=== PATIENT | female | born 1935 | race Caucasian/White ===

== ENCOUNTER → 2018-01-22 | Day surgery (SDC) | payer MEDICARE ==
[~2018-01-22] MED LIST: ASPI81TA50 PO; CHLO25TA PO; DEXL60CA2 PO; DILT120C80 PO; IV RINGERS SOLUTION,LACTATED 1,000 ML IV SCH; LIDOCAINE 1% PF 2 ML VIAL. ID PRN; LISI10TA2 PO; METO25TA4 PO; POTA10TA5 PO; PROPOFOL 10,000 MCG/ML (20ML) VIAL IV ONE; PROPOFOL 20 ML IV ONE; SIMV20TA3 PO
[2018-01-22 14:44] VITALS: BP 142/77
== END | disposition home or self-care (01) ==
LOC: SURG 12:32
PROVIDERS: ATTEND Internal Medicine Gastroenterology
DX: K57.30 Diverticulosis of large intestine without perforation or abscess without bleeding (principal); I10 Essential (primary) hypertension; E78.5 Hyperlipidemia, unspecified; Z90.710 Acquired absence of both cervix and uterus; Z90.49 Acquired absence of other specified parts of digestive tract; Z98.890 Other specified postprocedural states; Z83.3 Family history of diabetes mellitus; Z80.42 Family history of malignant neoplasm of prostate; Z82.49 Family history of ischemic heart disease and other diseases of the circulatory system; Z72.89 Other problems related to lifestyle; Z79.82 Long term (current) use of aspirin; Z79.899 Other long term (current) drug therapy; Z88.8 Allergy status to other drugs, medicaments and biological substances
CPT/HCPCS: 45380; J2704; J7120

== ENCOUNTER → 2018-02-25 | Outpatient (CLI) | payer MEDICARE ==
[2018-01-22 14:44] VITALS: BP 142/77
[~2018-02-25] MED LIST changes: -IV RINGERS SOLUTION,LACTATED 1,000 ML IV SCH; -LIDOCAINE 1% PF 2 ML VIAL. ID PRN; -PROPOFOL 10,000 MCG/ML (20ML) VIAL IV ONE; -PROPOFOL 20 ML IV ONE
[2018-02-25 09:20] LABS: CALCIUM 9.5 mg/dL (8.5-10.1); CREATININE 1.2 mg/dL (0.6-1.0); POTASSIUM 4.3 mmol/L (3.5-5.1)
== END | disposition home or self-care (01) ==
LOC: LAB 08:17
PROVIDERS: ATTEND Internal Medicine
DX: I10 Essential (primary) hypertension (principal); E03.9 Hypothyroidism, unspecified; E78.5 Hyperlipidemia, unspecified; Z90.49 Acquired absence of other specified parts of digestive tract; Z90.710 Acquired absence of both cervix and uterus; Z88.8 Allergy status to other drugs, medicaments and biological substances; Z79.899 Other long term (current) drug therapy; Z83.3 Family history of diabetes mellitus; Z80.42 Family history of malignant neoplasm of prostate
CPT/HCPCS: 36415; 80048; 84443

== ENCOUNTER → 2018-05-31 | Outpatient (CLI) | payer MEDICARE ==
[2018-01-22 14:44] VITALS: BP 142/77
[~2018-05-31] MED LIST changes: -CHLO25TA PO; +CHLO25TA9 PO; -DILT120C80 PO; +DILT120C85 PO
[2018-05-31 12:09] LABS: ALBUMIN 3.3 g/dL (3.4-5.0); CALCIUM 9.9 mg/dL (8.5-10.1); CREATININE 1.3 mg/dL (0.6-1.0); GFR 39.2; PHOSPHORUS 2.9 mg/dL (2.6-4.7); POTASSIUM 3.6 mmol/L (3.5-5.1); URIC ACID 8.9 mg/dL (2.6-6.0)
[2018-05-31 20:18] LABS: BILIRUBIN,URINE NEG (NEG); CLARITY,URINE CLEAR; COLOR,URINE YELLOW; GLUCOSE,URINE NEG (NEG); NITRITE,URINE NEG (NEG); UROBILINOGEN,URINE 0.2 mg/dL (0.2 mg/dL)
[2018-05-31 20:22] LABS: BACTERIA,URINE MOD /HPF (0-FEW); RBC,URINE OCC /HPF (0-2); SQUAMOUS EPITHELIAL CELL,UR MOD /LPF
== END | disposition home or self-care (01) ==
LOC: LAB 11:08
PROVIDERS: ATTEND Nurse Practitioner Adult Health
DX: I12.9 Hypertensive chronic kidney disease with stage 1 through stage 4 chronic kidney disease, or unspecified chronic kidney disease (principal); N18.9 Chronic kidney disease, unspecified; M10.071 Idiopathic gout, right ankle and foot; R39.15 Urgency of urination
CPT/HCPCS: 36415; 80069; 81001; 84550

== ENCOUNTER 2021-03-26 15:58 | Emergency (ER) | payer MEDICARE ==
[~2021-03-26] VITALS: Ht 170.2 cm; Wt 95.0 kg
[~2021-03-26 15:58] MED LIST changes: -DILT120C85 PO; +DILT120C99 PO; +LISI10TA16 PO; -LISI10TA2 PO; +SIMV20TA18 PO; -SIMV20TA3 PO
--- NOTE | 2021-03-26 16:21 | PHYS DOC ---
Adult General HPI HPI Patient is a 85-year-old female presenting via POV for chest pain. States onset was roughly 1.5 hour prior. States she was not physically active and getting ready to sit down and eat a bowl of soup when she experienced substernal chest pain that radiated to bilateral shoulders. States it is a dull pressure-like p ain and has been constant since onset. Reports it was initially 10/10 severity. has had several heart attacks and told patient to take a shot of bourbon at is it is better than nitroglycerin, they did not have bourbon so she took a shot of moonshine. This significantly helped her chest pain. Nonetheless, chest pain remained 8/10 severity and daughter was notified, she s ubsequently transported patient to our ER for evaluation. Patient denies any significant cardiac history but later reports that she has seen [facility] in the past for heart cath which resulted in no intervention. She takes a baby aspirin daily but reports today "for some reason", she took 324 mg aspirin. Denies any other significant symptoms since onset. She is otherwise been at baseline health. She is not vaccinated against COVID-19 Review of Systems Review of Systems Fourteen body systems of review of systems have been reviewed. See HPI for pertinent positives and negative responses, other smith all other systems are negative, non-pertinent or non-contributory Allergies Allergies Allergies Coded Allergies Type Severity Reaction Last Updated Verified No Known Drug Allergies 01/22/18 No Physical Exam Physical Exam Constitutional: Well developed, well nourished, no acute distress, non-toxic appearance. HENT: Normocephalic, atraumatic, bilateral external ears normal, oropharynx moist, no oral exudates, nose normal. Eyes: PERRLA, EOMI, conjunctiva normal, no discharge. Neck: Normal range of motion, no tenderness, supple, no stridor. Cardiovascular: Heart rate regular, sinus rhythm, no murmurs rubs or gallops Lungs & Thorax: Bilateral breath sounds clear to auscultation Abdomen: Bowel sounds normal, soft, no tenderness, no masses, no pulsatile masses. Nonsurgical abdomen, no peritoneal signs Skin: Warm, dry, no erythema, no rash. Back: No tenderness, no CVA tenderness. Extremities: No tenderness, no cyanosis, no clubbing, ROM intact, no edema. Neurologic: Alert and oriented X 3, grossly normal motor & sensory function, no focal deficits noted. Psychologic: Affect normal, judgement normal, mood normal. Current Patient Data Vital Signs Vital Signs Date Time Temp Pulse Resp B/P (MAP) Pulse Ox O2 Delivery O2 Flow Rate FiO2 03/26/21 16:05 100 18 149/82 (104) 96 Room Air 03/26/21 16:32 98.1 Vital Signs Date Time Temp Pulse Resp B/P (MAP) Pulse Ox O2 Delivery O2 Flow Rate FiO2 03/26/21 16:32 98.1 100 18 149/82 (104) 96 Room Air 141/80 (100) Lab Results Laboratory Tests Test 03/26/21 16:15 White Blood Count 8.9 x10^3/uL Red Blood Count 4.30 x10^6/uL Hemoglobin 13.3 g/dL Hematocrit 40.4 % Mean Corpuscular Volume 94 fL Mean Corpuscular Hemoglobin 31 pg Mean Corpuscular Hemoglobin Concent 33 g/dL Red Cell Distribution Width 13.5 % Platelet Count 240 x10^3/uL Neutrophils (%) (Auto) 73 % Lymphocytes (%) (Auto) 19 % Monocytes (%) (Auto) 6 % Eosinophils (%) (Auto) 1 % Basophils (%) (Auto) 1 % Neutrophils # (Auto) 6.5 x10^3uL Lymphocytes # (Auto) 1.7 x10^3/uL Monocytes # (Auto) 0.5 x10^3/uL Eosinophils # (Auto) 0.1 x10^3/uL Basophils # (Auto) 0.1 x10^3/uL Prothrombin Time 11.3 SEC Prothromb Time International Ratio 1.1 Activated Partial Thromboplast Time 25 SEC Sodium Level 138 mmol/L Potassium Level 3.0 mmol/L Chloride Level 99 mmol/L Carbon Dioxide Level 28 mmol/L Anion Gap 11 Blood Urea Nitrogen 18 mg/dL Creatinine 1.2 mg/dL Estimated GFR (Cockcroft-Gault) 42.7 BUN/Creatinine Ratio 15 Glucose Level 136 mg/dL Calcium Level 9.3 mg/dL Magnesium Level 1.3 mg/dL Total Bilirubin 0.4 mg/dL Aspartate Amino Transf (AST/SGOT) 23 U/L Alanine Aminotransferase (ALT/SGPT) 20 U/L Alkaline Phosphatase 89 U/L Creatine Kinase 113 U/L Creatine Kinase MB (Mass) 1.8 ng/mL Creatine Kinase MB Relative Index 1.6 % Troponin I Quantitative < 0.017 ng/mL [id number]-[id number]-Type Natriuretic Peptide 569 pg/mL Total Protein 7.8 g/dL Albumin 3.6 g/dL Albumin/Globulin Ratio 0.9 Current Medications Medications (Trade) Dose Ordered Sig/Justin Route PRN Reason Start Time Stop Time Status Last Admin Dose Admin Heparin Sodium (Porcine) (Heparin Sodium) 10,000 unit STK-MED ONCE .ROUTE 03/26/21 16:24 03/26/21 16:24 DC Heparin Sodium (Porcine) (Heparin Sodium) 5,000 unit STK-MED ONCE SQ 03/26/21 16:26 03/26/21 16:26 DC Heparin Sodium (Porcine) (Heparin Sodium) 4,000 unit 1X ONCE IV 03/26/21 17:00 03/26/21 17:01 DC 03/26/21 16:25 EKG EKG EKG ordered and interpreted by myself while in room at 1605 hrs. as sinus tachycardia at 103 bpm, prolonged QTC at 495 otherwise unremarkable intervals, no axis deviation, there is ST segment elevation in leads III and aVF with reciprocal ST depression in leads I, aVL and V3. Radiology/Procedures Radiology/Procedures XR CHEST 1V History: Chest pain Comparison: None. Technique: Portable AP radiograph of the chest. Findings: Adequate inflation. Mild elevation of the left diaphragm. Left greater than right basilar opacities. Cardiac silhouette is normal in size. Calcifications aortic arch. No pleural effusion or pneumothorax. Severe degenerative changes of the bilateral shoulders. Soft tissues are unremarkable. Impression: 1. Bilateral basilar opacities may represent atelectasis or consolidation. Electronically signed by: Michael Marinelli MD (03/26/2021 4:58 PM) [id number] Heart Score C/O Chest Pain: Yes HEART Score for Chest Pain: HEART Score for Chest Pain Response (Comments) Value History Highly Suspicious [address] Depression 2 Age > 65 2 Risk Factors >3 Risk Factors or Hx CAD 2 Troponin < Normal Limit 0 Total 8 Risk Factors: Risk Factors: DM, Current or recent (<one month) smoker, HTN, HLP, family history of CAD, obesity. Risk Scores: Risk Factors: DM, Current or recent (<one month) smoker, HTN, HLP, family history of CAD, obesity. Course & Med Decision Making Course & Med Decision Making Airway patent, breathing unlabored, IV access and vitals obtained grossly unremarkable History and physical examination obtained nonconcerning, EKG subsequently obtained during this in concerning for inferior wall STEMI, code STEMI called Case and EKG reviewed with cardiology attending at [facility] who confirmed STEMI. Hospitalist at [facility] contacted and he accepted patient for transfer and subsequent admission I have updated patient, daughter and on diagnosis and plan of care that includes heart catheterization, they were amenable. I administered 4000 IU heparin as instructed by substance abuse services director prior to hospital transfer to [facility] for heart cath Critical Care Time This patient required critical care. Due to the fact that the patient required a significant amount of one on one physician - patient contact time, ordering and review of studies, arranging urgent treatment with development of a management plan, evaluation of patients response to treatment with frequent reassessments, and discussions with other providers this patient required 30 minutes of critical care time. Critical care time was indicated due to the inherent instability and/or potential for instability in this patient. The critical care time that is allocated to this patient is above and beyond any time spent on any other billable procedures performed on this patient. Dragon Disclaimer Dragon Disclaimer This electronic medical record was generated, in whole or in part, using a voice recognition dictation system. Departure Departure: Impression: Primary Impression: ST elevation myocardial infarction (STEMI) of inferior wall Disposition: 02 [facility]ORT TERM [facility] ([facility]) Admitting Physician: Other (DR BAIRES) Condition: GUARDED (ERASED) Referrals: RAMSEY RIVERA MD (PCP) JOVITA MALCOLM DO Mar 26, 2021 16:21
[2021-03-26] MEDS ORDERED: HEPARIN for IV BOLUS 10,000 UNIT/10 ML VIAL. ONE (16:24)
--- NOTE | 2021-03-26 16:25 | EKG ---
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
[2021-03-26] MEDS ORDERED: HEPARIN for SUB-Q USE 5,000 UNIT/ML VIAL. SQ ONE (16:26)
[2021-03-26 16:32] VITALS: BP 141/80
[2021-03-26 16:59] LABS: BASO # 0.1 x10^3/uL (0.0-0.2); BASO % 1 % (0-3); EOS # 0.1 x10^3/uL (0.0-0.7); EOS % 1 % (0-3); HEMATOCRIT 40.4 % (36.0-47.0); HEMOGLOBIN 13.3 g/dL (12.0-15.5); LYMPH # 1.7 x10^3/uL (1.0-4.8); LYMPH % 19 % (24-48); MEAN CORPUSCULAR HEMOGLOBIN 31 pg (25-35); MEAN CORPUSCULAR HGB CONC 33 g/dL (31-37); MEAN CORPUSCULAR VOLUME 94 fL (79-100); MONO # 0.5 x10^3/uL (0.0-1.1); MONO % 6 % (0-9); NEUT # 6.5 x10^3uL (1.8-7.7); NEUT % 73 % (31-73); PLATELET COUNT 240 x10^3/uL (140-400); RED CELL DISTRIBUTION WIDTH 13.5 % (11.5-14.5); WHITE BLOOD COUNT 8.9 x10^3/uL (4.0-11.0)
[2021-03-26] MEDS ORDERED: HEPARIN for IV BOLUS 10,000 UNIT/10 ML VIAL. IV ONE (17:00)
--- NOTE | 2021-03-26 17:00 | RAD ---
XR CHEST 1V History: Chest pain Comparison: None. Technique: Portable AP radiograph of the chest. Findings: Adequate inflation. Mild elevation of the left diaphragm. Left greater than right basilar opacities. Cardiac silhouette is normal in size. Calcifications aortic arch. No pleural effusion or pneumothorax . Severe degenerative changes of the bilateral shoulders. Soft tissues are unremarkable. Impression: 1. Bilateral basilar opacities may represent atelectasis or consolidation. Electronically signed by: Michael Marinelli MD (03/26/2021 4:58 PM) [id number]
[2021-03-26 17:06] LABS: CALCIUM 9.3 mg/dL (8.5-10.1); CREATININE 1.2 mg/dL (0.6-1.0); GFR 42.7
[2021-03-26 17:38] LABS: ALBUMIN 3.6 g/dL (3.4-5.0); ALBUMIN/GLOBULIN RATIO 0.9 (1.0-1.7); MAGNESIUM 1.3 mg/dL (1.8-2.4); TOTAL BILIRUBIN 0.4 mg/dL (0.2-1.0); TOTAL PROTEIN 7.8 g/dL (6.4-8.2)
== END 2021-03-26 16:50 | disposition short-term general hospital (02) ==
LOC: ER 15:58
DX: I21.3 ST elevation (STEMI) myocardial infarction of unspecified site (principal); R07.89 Other chest pain; Z20.822 Contact with and (suspected) exposure to COVID-19
CPT/HCPCS: 36415; 71045; 80053; 82553; 83735; 83880; 84484; 85025; 85610; 85730; 93005; 96374; 99285; C9803; J1644; U0003